=== PATIENT | female | born 1980 | race Caucasian/White ===

== ENCOUNTER → 2017-06-27 | Outpatient (CLI) | payer OTHER ==
[~2017-06-27] MED LIST: BENZONATATE; DEXILANT60 MG PO; FLOMAX0.4 M1 PO; LEVAQUIN250 MG PO; METRONIDAZOLE PO; OMEPRAZOLE40 M1 PO; PROAIR HFA8.5 GM IH; PROBIOTIC1 EAC1 PO; SINGULAIR PO; SPIRIVA18 MCG PO; SYMBICORT INH; VITAMIN D-32000 UNI2 PO
[2017-06-28 07:15] LABS: BRAZIL NUT ALLERGEN REF; CASHEW ALLERGEN REF; PEANUT IGE REF; PECAN NUT IGE REF; WALNUT IGE REF
== END | disposition home or self-care (01) ==
LOC: CLAB 07:45
PROVIDERS: Allergy & Immunology
DX: T78.1XXA Other adverse food reactions, not elsewhere classified, initial encounter (principal)
CPT/HCPCS: 36415; 82785; 86003